=== PATIENT | female | born 1995 | race Hispanic/Latino ===

== ENCOUNTER 2017-11-12 16:22 | Emergency (ER) | payer OTHER ==
[~2017-11-12] VITALS: Ht 154.9 cm; Wt 61.2 kg
[2017-11-12] MEDS ORDERED: KETOROLAC TROMETHAMINE 30 MG/ML VIAL IM STA (17:07)
[2017-11-12 18:28] LABS: CLARITY,URINE CLEAR (CLEAR); COLOR,URINE YELLOW (YELLOW)
[2017-11-12 18:29] LABS: BILIRUBIN,URINE NEGATIVE (NEGATIVE); KETONES,URINE NEGATIVE (NEGATIVE); LEUKOCYTE ESTERASE ,URINE NEGATIVE (NEGATIVE); NITRITE,URINE NEGATIVE (NEGATIVE); PROTEIN,URINE DIPSTICK TRACE (NEGATIVE); URINE UROBILINOGEN 0.2 mg/dL (0.2 - 1)
[2017-11-12 18:31] LABS: PREGNANCY TEST, URINE NEGATIVE (NEGATIVE)
[2017-11-12 18:48] LABS: WBC,URINE (MAN) 0-5 /HPF (0-5)
[2017-11-12 18:49] LABS: BACTERIA,URINE RARE /HPF; EPITHELIAL CELLS,URINE MODERATE /LPF; RBC,URINE 0-5 /HPF (0-5)
== END 2017-11-12 19:55 | disposition home or self-care (01) ==
LOC: ER 16:22
DX: M54.41 Lumbago with sciatica, right side (principal); S39.012A Strain of muscle, fascia and tendon of lower back, initial encounter
CPT/HCPCS: 81001; 81025; 87400; 99283; J1885

== ENCOUNTER 2019-05-28 15:43 | Emergency (ER) | payer OTHER ==
[~2019-05-28] VITALS: Ht 157.5 cm; Wt 61.2 kg
--- NOTE | 2019-05-28 17:01 | Diagnostic Imaging Report ---
EXAMINATION: SACRUM COCCYX 2+ VEIWS - HOPD INDICATION: Trauma COMPARISON: None FINDINGS: AP and lateral views of the sacrum and coccyx demonstrate no acute fracture or dislocation. Alignment appears anatomic. Nonobstructive bowel gas pattern. IMPRESSION: No acute osseous injury. Signed by: Agustin Ramirez MD on 05/28/2019 4:58 PM
[2019-05-28 17:30] VITALS: BP 137/79
== END 2019-05-28 17:38 | disposition home or self-care (01) ==
LOC: FSED 15:43
DX: S33.5XXA Sprain of ligaments of lumbar spine, initial encounter (principal); V43.52XA Car driver injured in collision with other type car in traffic accident, initial encounter; Y92.488 Other paved roadways as the place of occurrence of the external cause
CPT/HCPCS: 72220; 81025; 99283